=== PATIENT | male | born 1965 | race Asian ===

== ENCOUNTER 2025-02-14 12:58 | Outpatient (AMB) | payer OTHER, SELFPAY ==
--- NOTE | 2025-02-14 12:55 | MHC.OFFVIS ---
Intake Visit Reasons: dysuria and urinary hesitancy Intake Note: New Patient is present for Dysuria,Urinary Hesitancy Urology Rx:Tamsulosin PVR:14 mls Blood Thinners:none Imaging completed: none Vice President Quality Required: No Accompanied by: Self / Same As Patient Allergies No Known Allergies Allergy (Verified 02/14/25 12:56) HPI Comments Details: Tae is a [place] male. He is seen for the following urologic conditions - chronic prostatitis Reports symptoms of urgency, frequency and urinary hesitancy Placed on tamsulosin by prior urology review Treated on 2 separate occasions for UTI through urgent care ABEBA with boggy base of prostate and reproducible symptoms Consistent with chronic prostatitis Trial of prednisone, anti-inflammatory and 2 weeks antibiotics May need Microgen Review of Systems Const Denies chills and Denies fever(s) Card Reports no additional complaints and Denies syncope Resp Denies cough GI Denies abdominal pain and Denies heartburn Reports as per HPI and Denies change in libido Neuro Denies syncope Psych Denies change in libido Endo Denies change in libido Physical Exam Const General: cooperative, healthy appearing, comfortable and no acute distress Orientation/consciousness: patient oriented x3 HEENT Face and sinus: Yes normal facial exam Mouth: moist mucous membranes Neck Neck: Yes normal visual inspection, Yes full ROM and Yes trachea midline Chest Chest palpation & inspection: normal inspection of the chest Resp Effort & Inspection: normal respiratory effort, able to speak in complete sentences and no respiratory distress GI Inspection: Yes normal to inspection Rectal Exam - Male: Yes normal sphincter tone and Yes prostate normal Male General Exam: Yes normal external exam Penis: normal penis and circumcised Meatus: meatus normal Scrotum: scrotum normal Testes: Testes normal Back/Spine/Pelvis Cervical Spine: normal cervical lordosis Thoracic/Lumbar Spine: thoracic and lumbar spine normal to inspection Skin General skin exam: no rashes or lesions noted Neuro General: patient oriented x3, gait normal, tone normal and moves all extremities Extrem General: Yes normal to inspection and Yes capillary refill normal Assessment & Plan Assessment & Plan (1) Pyuria, sterile: Code(s): R82.81 - Pyuria Category: Medical (2) Urinary hesitancy: Code(s): R39.11 - Hesitancy of micturition Category: Medical (3) Dysuria: Code(s): R30.0 - Dysuria Category: Medical (4) Chronic prostatitis/chronic pelvic pain syndrome: Code(s): N41.1 - Chronic prostatitis; G89.4 - Chronic pain syndrome Category: Medical Plan Prostatitis therapy Two month follow-up Orders: Orders US bladder 2 Months G89.4 - Chronic pain syndrome, N41.1 - Chronic prostatitis Medications: New sulfamethoxazole-trimethoprim 800-160 mg (Bactrim DS) 1 tab PO BID 28 tabs 0RF 14 days G89.4 - Chronic pain syndrome, N41.1 - Chronic prostatitis prednisone 20 mg PO DAILY 7 tabs 0RF 7 days G89.4 - Chronic pain syndrome, N41.1 - Chronic prostatitis meloxicam 15 mg PO DAILY 30 tabs 0RF 30 days G89.4 - Chronic pain syndrome, N41.1 - Chronic prostatitis Patient Instructions: This note is constructed using voice recognition software. While every effort has been made to ensure accuracy sample processor errors may have been included. Imaging studies, laboratory and physical exam results were discussed and reviewed in detail. No major barriers to patient understanding were identified. An opportunity to ask questions regarding the treatment plan was provided. All questions were answered. The patient expressed understanding and agreement with the above treatment plan. The patient is aware they should contact our office by phone for worsening of their current condition or the appearance of new urologic symptoms. Compliance is encouraged with any medications and followup testing that is ordered. It is a privilege to participate in the urologic care of your patient. If you have any questions or concerns regarding treatment for the above conditions, or other urologic issues, please do not hesitate to contact me. The office telephone contact is [phone]. Sincerely, Dr Robbie Marc MD, [facility] - Urology Compassionate Specialist Care for the Genitourinary System Coding Level of Care Code New Pt Level 4 (35254) Diagnoses Pyuria, sterile R82.81 Urinary hesitancy R39.11 Dysuria R30.0 Chronic prostatitis/chronic pelvic pain syndrome N41.1; G89.4
--- OUTSIDE RECORDS SUMMARY | 2025-02-14 13:08 | XMS_ITS | Clinical Summary ---
Author Organization [address] [facility] Address [address] [place] [address] Phone Care Team Providers Care Vertical Punch Operator Name Role Phone Azeb Valentine Primary Care Provider [phone] Allergies No known active allergies Medications tamsulosin (FLOMAX) 0.4 mg 24 hr capsule Take 1 capsule (0.4 mg total) by mouth 1 (one) time each day. Capsules should be taken 30 minutes following the same meal each day. Active acetaminophen (TYLENOL 8 HOUR) 650 mg 8 hr tablet Take 1 tablet (650 mg total) by mouth every 8 (eight) hours if needed for mild pain. Do not crush, chew, or split. Active trolamine salicylate (ASPERCREME) 10 % cream Apply topically 3 (three) times a day. Active Encounters Date Type Department Care Team Description 01/23/2025 Telephone Gastroenterology [facility] [address] [address] Nayeli Diop MD special procedure 01/09/2025 Telephone Gastroenterology [address] [address] Nayeli Diop MD information needed from Last 3 Months Social History Tobacco Use Types Packs/Day Years Used Date Smoking Tobacco: Never Assessed Sex and Gender Information Value Date Recorded Sex Assigned at Not on file Legal Sex Male 2:43 AM EST Gender Identity Not on file Sexual Orientation Not on file Plan of Treatment Upcoming Encounters Date Type Department Care Team ([facility] st Contact Info) Description 03/21/2025 7:30 AM EDT Appointment [facility] Endoscopy [address] [place] [address] Nayeli Diop MD [address] [facility] [address] [place] [address] Health Maintenance Due Date Last Done Comments DTaP,Tdap,and Td Vaccines (1 - Tdap) 09/27/1986 Hepatitis B Vaccines (1 of 3 - 19+ 3-dose series) 09/27/1986 Pneumococcal Vaccine: 50+ Ye ars (1 of 1 - PCV) 09/27/2017 Zoster Vaccines (1 of 2) 09/27/2017 Cholesterol Screening (Lipid Panel) 02/14/2024 Colorectal Cancer Screening: Colonoscopy 02/14/2024 HIV Screening 02/14/2024 Hepatitis C Screening 02/14/2024 Social Influencers of Health Screening 02/14/2024 COVID-19 Vaccine (1 - 2023-2 5 season) 2024 Depression Screening 07/18/2024 Influenza Vaccine (#1) 2025 HIB Vaccines Aged Out No longer eligi ble based on patient's age to complete this topic HPV Vaccines Aged Out No longer eligi ble based on patient's age to complete this topic Hepatitis A Vaccines Aged Out No long er eligible based on patient's age to complete this topic IPV Vaccines Aged Out No longer eligi ble based on patient's age to complete this topic MMR Vaccines Aged Out No longer eligi ble based on patient's age to complete this topic Meningococcal ACWY Vaccine Aged Out N o longer eligible based on patient's age to complete this topic Meningococcal B Vaccine Aged Out No l onger eligible based on patient's age to complete this topic RSV Immunization Patients Un anshul 20 months Aged Out No longer eligible b ased on patient's age to complete this topic Varicella Vaccines Aged Out No longer eligible based on patient's age to complete this topic Insurance [facility] Care Teams Vertical Punch Operator Relationship Specialty Start Date End Date Azeb Valentine PA [address] [place] [address] PCP - General 01/09/25
--- OUTSIDE RECORDS SUMMARY | 2025-02-14 13:08 | XMS_ITS | Clinical Summary ---
Author Organization [facility] Address [address] [place] [address] Care Team Providers Care Waste Management Specialist Name Role Phone Jorge A De La Cruz LOANS OFFICER-C Primary Care Provider [phone] Source Comments PLEASE NOTE, if this patient is a minor, it may be UNLAWFUL to discuss sensitive information that is contained in these records (such as FAMILY PLANNING, MENTAL HEALTH or SUBSTANCE ABUSE) with the minor patient's parent or other person without the patient's specific authorization.[facility] Medications ARTHRITIS 10 % cream TAKE 1 APPLICATION (TOPICAL) 3 TIMES PER DAY (MUSCLE PAIN) FOR 14 DAYS 5 Active acetaminophen (TYLENOL 8 HOUR) 650 mg CR tabletIndicati ons:Acute pain of right shoulder Take 1 Tablet by mouth every 8 (eight) hours as needed for pain. 90 Tablet 1 5 Active tamsulosin (FLOMAX) 0.4 mg 24 hr capsuleIndicat ions:Painful urination,Urin benito hesitancy Take 1 Capsule by mouth once daily. 90 Capsule 3 5 Active sulfamethoxazo le-trimethopri m (BACTRIM DS) 800-160 mg per tabletIndicati ons:bacterial urinary tract infection Take 1 Tablet by mouth 2 (two) times daily Indications: bacterial urinary tract infection. 14 Tablet 5 Active tamsulosin (FLOMAX) 0.4 mg 24 hr capsule Take 0.4 mg by mouth once daily. 01/18/20 25 Discontin ued(Reord er (E-Cancel Not Sent)) Active Problems No known active problems Encounters Date Type Department Care Team Description 01/17/2025 5:00 PM EDT Office Visit [facility] [address] [place] [id number] Andi, SITA Cabello 01/08/2025 Results Follow-Up [address] [place] [address] Azeb Valentine PA-C 12/12/2024 1:40 PM EDT Office Visit [facility] [address] [place] [address] Azeb Valentine PA-C from Last 3 Months Immunizations Immunization Administration Dates Next Due ZOSTER VACCINE, RECOMBINANT (SHINGRIX) Family History Medical History Relation Name Comments Diabetes Mother Stroke Mother Relation Name Status Comments Mother Social History Tobacco Use Types Packs/Day Years Used Date Smoking Tobacco: Every Day Cigarettes Smokeless Tobacco: Never Tobacco Cessation:Ready to Q uit: Not Asked; Counseling Given: Not Answered Alcohol Use Standard Drinks/Week Comments Never 0 (1 standard drink = 0.6 oz pur e alcohol) Social Connections Answer Date Recorded How often do you feel lonely or isolated from th ose around you? 1 12/12/2024 Financial Resource Strain Answer Date R ecorded Hard to pay for: Food 1 12/12/2024 Stress Answer Date Recorded Do you feel these kinds of stress these days? 1 12/12/2024 Food Insecurity Answer Date Recorded Hard to pay for: Food 1 12/12/2024 Transportation Needs Answer Date Record ed Hard to pay for: Transportation 1 12/12/2024 Utilities Answer Date Recorded Hard to pay for: Utilities 1 12/12 Sex and Gender Information Value Date Recorded Sex Assigned at Male 12/12/2024 10:46 AM PDT Legal Sex Male 12:05 PM PDT Gender Identity Male 12/12/2024 10:46 AM PDT Sexual Orientation Straight 12/12/2024 10 :46 AM PDT Last Filed Vital Signs Vital Sign Reading Time Taken Comments Blood Pressure 153/82 01/17/2025 4:49 PM EDT Pulse 91 01/17/2025 4:49 PM EDT Temperature 36.7 C (98 F) 01/17/2025 4:49 PM EDT Respiratory Rate 16 01/17/2025 4:49 PM EDT Oxygen Saturation 97% 12/12/2024 1:46 PM EDT Inhaled Oxygen Concentration - - Weight 67.6 kg (149 lb 1.6 oz) 01/17/2025 4:49 P M EDT Height 167.6 cm (5' 6 ) 01/17/2025 4:49 PM EDT Body Mass Index 24.07 01/17/2025 4:49 PM EDT Plan of Treatment Health Maintenance Due Date Last Done Comments Anxiety Screening 1965 Imm-DTaP/Tdap/Td (1 - Tdap) 09/27/1986 Imm-Hepatitis B (1 of 3 - 19 + 3-dose series) 09/27/1986 Imm-Pneumococcal 50+ (1 of 2 - PCV) 09/27/1986 CT Colonography 09/27/2012 Flexible Sigmoidoscopy 09/27/2012 Zym-[id number]-64 (4 - 2023- season) 2024 07/27/2021, 12/19/2020, 11/21/2020 Colonoscopy 01/02/2025 Colorectal Cancer Screening 01/02/2025 Imm-Zoster, Recombinant (2 of 2) 02/06/2025 12/13/19 Imm-Influenza (#1) 2025 Tobacco Cessation Counseling (#1) 12/12/2025 FIT/gFOBT 12/27/2025 12/27/2024, 12/27/2024 Hypertension Screening (#1) 01/17/2026 Diabetes Screening 12/13/2027 12/12/2024 Fecal DNA 12/28/2027 12/27/2024, 12/27/2024 Lipid Screening 12/12/2029 12/12/2024 Alcohol and Drug Screen Completed 12/12/2024 Depression Annual Screen Completed 12/12/2024 HIV Screening Completed 12/12/2024 Hepatitis C Screening Completed 12/12/2024 Procedures Procedure Name Priority Date/Time Associated Diagnosis Comments URINE CULTURE W ID & SENS Routine 01/17/2025 5:06 PM EDT Painful urination Urinary hesitancy RFLX - REFLEXIVE URINE CULTURE Routine 01/17/2025 5:06 PM EDT Painful urination Urinary hesitancy URINALYSIS, COMPLETE W/REFLEX TO CULTURE Routine 01/17/2025 5:06 PM EDT Painful urination URINALYSIS, MULTISTIX (POCT) Routine 01/17/2025 4:55 PM EDT Painful urination LAB COLOGUARD COLON CANCER SCREEN AMB Routine 12/27/2024 5:55 AM EDT Screening for colon cancer C TRACHOMATIS/N GONORRHOEAE RNA,TMA Routine 12/12/2024 3:41 PM EDT Routine screening for STI (sexually transmitted infection) HEPATITIS C AB W/RFLX HCV RNA, QT, RT PCR Routine 12/12/2024 2:28 PM EDT Routine screening for STI (sexually transmitted infection) LIPIDS W RFLX TO DIRECT LDL Routine 12/12/2024 2:28 PM EDT Family history of stroke COMPREHENSIVE METABOLIC PANEL Routine 12/12/2024 2:28 PM EDT Family history of stroke BLOOD COUNT COMPLETE AUTO&AUTO DIFRNTL WBC Routine 12/12/2024 2:28 PM EDT Family history of stroke RPR (DIAGNOSIS) WITH REFLEX TO TITER AND CONFIRMATORY TESTING Routine 12/12/2024 2:28 PM EDT Routine screening for STI (sexually transmitted infection) HIV 1/2 AG & AB W/RFLX (4TH GEN) Routine 12/12/2024 2:28 PM EDT Routine screening for STI (sexually transmitted infection) from Last 3 Months Results * (ABNORMAL) URINE CULTURE W ID & SENS Routine (01/17/2025 5:06 PM EDT) CULTURE See Note(A) [facility] Comment: CULTURE, URINE, ROUTINE Micro Number: [id number] Test Status: Final Specimen Source: Urine Specimen Quality: Adequate Result: Greater than 100,000 CFU/mL of Escherichia coli E.coli INT MEGAN AMOX/CLAVULANATE S <=2 AMP/SULBACTAM S <=2 CEFAZOLIN NR 2 2 CEFEPIME S <=0.12 CEFTAZIDIME S <=0.5 CEFTRIAXONE S <=0.25 CIPROFLOXACIN S <=0.06 GENTAMICIN S <=1 IMIPENEM S <=0.25 LEVOFLOXACIN S <=0.12 MEROPENEM S <=0.25 NITROFURANTOIN S <=16 PIP/TAZOBACTAM S <=4 TRIMETHOPRIM/SULFA S <=20 S = Susceptible I = Intermediate R = Resistant NS = Not susceptible SDD = Susceptible Dose Dependent * = Not Tested NR = Not Reported NN = See Therapy Comments THERAPY COMMENTS Note 1: For infections other than uncomplicated UTI caused by E. coli, K. pneumoniae or P. mirabilis: Cefazolin is resistant if MEGAN > or = 8 mcg/mL. (Distinguishing susceptible versus intermediate for isolates with MEGAN < or = 4 mcg/mL requires additional testing.) Note 2: For uncomplicated UTI caused by E. coli, K. pneumoniae or P. mirabilis: Cefazolin is susceptible if MEGAN <32 mcg/mL and predicts susceptible to the oral agents cefaclor, cefdinir, cefpodoxime, cefprozil, cefuroxime, cephalexin and loracarbef. 01/17/2025 5:06 PM EDT 01/18/2025 7:25 AM EDT us Irineo Escamilla PA-C LAB - MICROBIOLOGY AMBULATORY Final Result [facility] [address] [address], [facility] [address] [address] * (ABNORMAL) URINALYSIS, COMPLETE W/REFLEX TO CULTURE Urine Routine (01/17/2025 5:06 PM EDT) COLOR DARK YELLOW YELLOW [facility] APPEARANCE CLOUDY(A) CLEAR [facility] SPECIFIC GRAVITY 1.025 1.001 - 1.035 [facility] URINE PH 8.0 5.0 - 8.0 [facility] GLUCOSE NEGATIVE NEGATIVE [facility] BILIRUBIN NEGATIVE NEGATIVE [facility] KETONES TRACE(A) NEGATIVE [facility] [place] Prior Knowledge OCCULT BLOOD 2+(A) NEGATIVE [facility] URINE PROTEIN 2+(A) NEGATIVE [facility] NITRITE POSITIVE(A) NEGATIVE [facility] LEUKOCYTE ESTERASE 3+(A) NEGATIVE [facility] URINE LEUKOCYTES > OR = 60(A) < OR = 5 [facility] RBC 20-40(A) 0 - 2 /HPF [facility] SQUAMOUS EPITHELIAL CELLS NONE SEEN < OR = 5 [facility] BACTERIA NONE SEEN NONE SEEN [facility] AMORPHOUS SEDIMENT MANY(A) NONE OR FEW [facility] HYALINE CAST 0-5(A) NONE SEEN /LPF [facility] SEE NOTE See Below [facility] Comment: This urine was analyzed for the presence of WBC, RBC, bacteria, casts, and other formed elements. Only those elements seen were reported. Urine Urine specimen / Unknown 01/17/2025 5:06 PM EDT 01/18/2025 7:25 AM EDT Irineo Escamilla PA-C LAB URINE AMBULATORY Edited R esult - Final Performing Organization Address [facility]/ZIP Co de Phone Number [facility] [address] [address], [facility] [address] [address] * RFLX - REFLEXIVE URINE CULTURE Routine (01/17/2025 5:06 PM EDT) REFLEXIVE URINE CULTURE See Below [facility] Comment:CULTURE INDICATED - RESULTS TO FOLLOW 01/17/2025 5:06 PM EDT 01/18/2025 7:25 AM EDT Irineo Escamilla PA-C LAB - MICROBIOLOGY AMBULATORY Edited Result - Final Performing Organization Address [facility]/ZIP Co de Phone Number [facility] [address] [address], [email or web address] [address] [address] * (ABNORMAL) URINALYSIS, MULTISTIX (POCT) Urine Routine (01/17/2025 4:55 PM EDT) URINE GLUCOSE NEGATIVE NEGATIVE [facility] POCT URINE BILIRUBIN NEGATIVE NEGATIVE [facility] PO[facility] URINE KETONES NEGATIVE NEGATIVE [facility] POCT URINE SPECIFIC GRAVITY 1.020 <=1.005 - >=1.030 [facility]- BACK OFFICE POCT URINE BLOOD LARGE(A) NEGATIVE [facility] POCT URINE PH 8.0 5.0 - 8.5 [facility]- BACK OFF[facility] POCT URINE PROTEIN 100 (2+)(A) Negative KO NG [facility]- BACK OFFICE POCT URINE UROBILINOGEN 1.0 0.2 - 1.0 E.U./dL [facility]- BACK OFFICE POCT URINE NITRITE NEGATIVE NEGATIVE [facility]- BACK OFFICE POCT URINE LEUKOCYTES MODERATE(A) NEGATIVE C [facility]- BACK OFFICE POCT URINE COLOR DARK YELLOW STRAW, YELLOW [facility]- BACK OFFICE POCT ODOR URINE Abnormal(A) Normal [facility]- BACK OFFICE POCT CLARITY OF URINE CLOUDY(A) CLEAR CAR ING [facility]- BACK OFFICE POCT Urine Urine specimen / Unknown 01/17/2025 4:55 PM EDT Irineo Escamilla PA-C LAB URINE AMBULATORY Final Re sult [facility]- BACK OFF[facility] POCT * (ABNORMAL) Cologuard?? colon cancer screening Stool Stool Routine (12/27/2024 5:55 AM EDT) COLOGUARD RESULT Positive( A) Negative 01/01/2025 12:39 PM EDT [facility] (CLIA #:[id number]) Comment: The Cologuard (TM) test was performed on this specimen. POSITIVE TEST RESULT. A positive Cologuard result should be followed with a colonoscopy or visual examination of the colon. The normal value (reference range) for this assay is negative. TEST DESCRIPTION: Composite algorithmic analysis of stool DNA-biomarkers with hemoglobin immunoassay. Quantitative values of individual biomarkers are not reportable and are not associated with individual biomarker result reference ranges. Cologuard is intended for colorectal cancer screening of adults of either sex, 45 years or older, who are at average-risk for colorectal cancer (CRC). Cologuard has been approved for use by the U.S. FDA. The performance of Cologuard was established in a cross sectional study of average-risk adults aged 50-84. Cologuard performance in patients ages 45 to 49 years was estimated by sub-group analysis of near-age groups. Colonoscopies performed for a positive result may find as the most clinically significant lesion: colorectal cancer [4.0%], advanced adenoma (including sessile serrated polyps greater than or equal to 1cm diameter) [20%] or non- advanced adenoma [31%]; or no colorectal neoplasia [45%]. These estimates are derived from a prospective cross-sectional screening study of 10,000 individuals at average risk for colorectal cancer who were screened with both Cologuard and colonoscopy. (Len Chatman et al, N Engl J Med 2014;370(14):4135-8951.) Cologuard may produce a false negative or false positive result (no colorectal cancer or precancerous polyp present at colonoscopy follow up). A negative Cologuard test result does not guarantee the absence of CRC or advanced adenoma (pre-cancer). The current Cologuard screening interval is every 3 years. ([place] [employer] and U.S. Multi-Society Task Force). Cologuard performance data in a 10,000 patient pivotal study using colonoscopy as the reference method can be accessed at the following location: [email or web address]/results. Additional description of the Cologuard test process, warnings and precautions can be found at [email or web address]. Stool specimen (specimen) 12/27/2024 5:55 AM EDT 12/28/2024 11:16 AM EDT Azeb Valentine PA-C LAB BODY FLUIDS AND STOOLS A MBULATORY Final Result [facility] (CLIA #:[id number]) [address] [place] [address], * CHLAMYDIA/NEISSERIA GONORRHOEAE RNA, TMA, UROGENITAL Urine Urine Routine (12/12/2024 3:41 PM EDT) CHLAMYDIA TRACHOMATIS RNA, TMA NOT DETECTED NOT DETECTED [facility] NEISSERIA GONORRHOEAE RNA, TMA NOT DETECTED NOT DETECTED [facility] COMMENT [facility] Urine Urine specimen / Unknown 12/12/2024 3:41 PM EDT 12/12/2024 3:41 PM EDT Narrative [facility] - 12/13/2024 2:32 PM EDT SPLIT 12/12/2024 FROM [id number] The analytical performance characteristics of this assay, when used to test SurePath(TM) specimens have been determined by [employer]. The modifications have not been cleared or approved by the FDA. This assay has been validated pursuant to the CLIA regulations and is used for clinical purposes. For additional information, please refer to https://education.Mindwork [employer]/faq/MRT921 (This link is being provided for information/ educational purposes only.) us Azeb Valentine PA-C LAB BODY FLUIDS AND STOOLS A MBULATORY Final Result Performing Organization Address [facility] Co de Phone Number [facility] [address] [address], [email or web address] [address] [address] * RPR (DIAGNOSIS) WITH REFLEX TO TITER AND CONFIRMATORY TESTING Routine (12/12/2024 2:28 PM EDT) RPR (DX) W/REFL TITER AND CONFIRMATORY TESTING NON-REACT DARELL NON-REACT DARELL [facility] Comment: No laboratory evidence of syphilis. If recent exposure is suspected, submit a new sample in 2-4 weeks. Serum Blood / Unknown 12/12/2024 2 :28 PM EDT 12/12/2024 2:29 PM EDT Narrative [facility] - 12/14/2024 10:54 AM EDT SPECIMEN COLLECTED AT PROVIDER OFFICE. [employer] Azeb Valentine PA-C LAB - BLOOD DRAW Final Resul t Performing Organization Address [facility]/ZIP Co de Phone Number [facility] [address] [place] [address], [email or web address] [address] [address] * HEPATITIS C AB W/RFLX HCV RNA, QT, RT PCR Routine (12/12/2024 2:28 PM EDT) HEPATITIS C ANTIBODY NON-REACT DARELL NON-REACT DARELL [facility] Comment: HCV antibody was non-reactive. There is no laboratory evidence of HCV infection. In most cases, no further action is required. However, if recent HCV exposure is suspected, a test for HCV RNA (test code 07963) is suggested. For additional information please refer to http://AppTank.[facility]work [facility]/faq/ZEN25w3 (This link is being provided for informational/ educational purposes only.) Blood Blood / Unknown 12/12/2024 2 :28 PM EDT 12/12/2024 2:29 PM EDT Narrative [facility] - 12/14/2024 10:54 AM EDT SPECIMEN COLLECTED AT PROVIDER OFFICE. us Azeb Valentine PA-C LAB - BLOOD DRAW Edited Resu lt - Final [facility] [address] [place] [address], [facility] [address] [place] [phone] * HIV 1/2 AG & AB W/RFLX (4TH GEN) Routine (12/12/2024 2:28 PM EDT) HIV AG/AB, 4TH GEN NON-REAC TIVE NON-REAC TIVE [facility] Comment: HIV-1 antigen and HIV-1/HIV-2 antibodies were not detected. There is no laboratory evidence of HIV infection. PLEASE NOTE: This information has been disclosed to you from records whose confidentiality may be protected by state law. If your state requires such protection, then the state law prohibits you from making any further disclosure of the information without the specific written consent of the person to whom it pertains, or as otherwise permitted by law. A general authorization for the release of medical or other information is NOT sufficient for this purpose. For additional information please refer to http://AppTank.[facility]/faq/NLE647 (This link is being provided for informational/ educational purposes only.) The performance of this assay has not been clinically validated in patients less than 2 years old. Blood Blood / Unknown 12/12/2024 2 :28 PM EDT 12/12/2024 2:29 PM EDT Narrative [facility] - 12/14/2024 10:54 AM EDT SPECIMEN COLLECTED AT PROVIDER OFFICE. us Azeb Valentine PA-C LAB - BLOOD DRAW Final Resul t [facility] [address] [place] [address], [facility] [address] [address] * (ABNORMAL) LIPIDS W RFLX TO DIRECT LDL Routine (12/12/2024 2:28 PM EDT) CHOLESTEROL, TOTAL 181 <200 mg/dL [facility] HDL CHOLESTEROL 49 > OR = 40 mg/dL [facility] TRIGLYCERIDES 118 <150 mg/dL [facility] LDL-CHOLESTEROL 109(H) 99 mg/dL (calc) [facility] Comment: Reference range: <100 Desirable range <100 mg/dL for primary prevention; <70 mg/dL for patients with CHD or diabetic patients with > or = 2 CHD risk factors. LDL-C is now calculated using the Rj-Rowe calculation, which is a validated novel method providing better accuracy than the Friedewald equation in the estimation of LDL-C. Rj QUIROZ et al. OCTAVIO. 2013;310(19): 8729-8417 (http://education.Mygeni/faq/RLA971) CHOL/HDLC RATIO 3.7 <5.0 (calc) [facility] NON-HDL CHOLESTEROL 132(H) <130 mg/dL (calc) [facility] Comment: For patients with diabetes plus 1 major ASCVD risk factor, treating to a non-HDL-C goal of <100 mg/dL (LDL-C of <70 mg/dL) is considered a therapeutic option. Blood Blood / Unknown 12/12/2024 2 :28 PM EDT 12/12/2024 2:29 PM EDT Narrative [facility] - 12/14/2024 10:54 AM EDT SPECIMEN COLLECTED AT PROVIDER OFFICE. us Azeb Valentine PA-C LAB - BLOOD DRAW Final Resul t [facility] [address] [address], [facility] [address] [place] [address] * (ABNORMAL) BLOOD COUNT COMPLETE AUTO&AUTO DIFRNTL WBC Routine (12/12/2024 2:28 PM EDT) WHITE BLOOD CELL COUNT 13.8(H) 3.8 - 10.8 Thousand/ uL [facility] RED BLOOD CELL COUNT 4.71 4.20 - 5.80 Million/u L [facility] HEMOGLOBIN 15.4 13.2 - 17.1 g/dL [facility] HEMATOCRIT 45.1 38.5 - 50.0 % [facility] MCV 95.8 80.0 - 100.0 fL [facility] MCH 32.7 27.0 - 33.0 pg [facility] MCHC 34.1 32.0 - 36.0 g/dL [facility] Comment: For adults, a slight decrease in the calculated MCHC value (in the range of 30 to 32 g/dL) is most likely not clinically significant; however, it should be interpreted with caution in correlation with other red cell parameters and the patient's clinical condition. RDW 14.5 11.0 - 15.0 % [facility] PLATELET COUNT 162 140 - 400 Thousand/ uL [facility] MPV 11.3 7.5 - 12.5 fL [facility] ABSOLUTE NEUTROPHILS 8,611(H) 1,500 - 7,800 cells/uL [facility] ABSOLUTE LYMPHOCYTES 3,809 850 - 3,900 cells/uL [facility] ABSOLUTE MONOCYTES 745 200 - 950 cells/uL [facility] ABSOLUTE EOSINOPHILS 538(H) 15 - 500 cells/uL [facility] ABSOLUTE BASOPHILS 97 0 - 200 cells/uL [facility] NEUTROPHILS PCT 62.4 % QUES [facility] LYMPHOCYTES 27.6 % [facility] MONOCYTES 5.4 % [facility] EOSINOPHILS 3.9 % [facility] BASOPHILS 0.7 % [facility] Blood Blood / Unknown 12/12/2024 2 :28 PM EDT 12/12/2024 2:29 PM EDT Narrative [facility] - 12/14/2024 10:54 AM EDT SPECIMEN COLLECTED AT PROVIDER OFFICE. Azeb Valentine PA-C LAB - BLOOD DRAW Edited Resu lt - Final [facility] [address] [address], [facility] [address] [place] [address] * (ABNORMAL) COMPREHENSIVE METABOLIC PANEL Routine (12/12/2024 2:28 PM EDT) GLUCOSE 102(H) 65 - 99 mg/dL [facility] Comment: Fasting reference interval For someone without known diabetes, a glucose value between 100 and 125 mg/dL is consistent with prediabetes and should be confirmed with a follow-up test. UREA NITROGEN (BUN) 12 7 - 25 mg/dL [facility] CREATININE (blood) 0.84 0.70 - 1.30 mg/dL [facility] EGFR 102 > OR = 60 mL/min/1. 73m2 [facility] BUN/CREATININE RATIO SEE NOTE: [facility] Comment: Not Reported: BUN and Creatinine are within reference range. SODIUM 139 135 - 146 mmol/L [facility] POTASSIUM 4.9 3.5 - 5.3 mmol/L [facility] CHLORIDE 106 98 - 110 mmol/L [facility] CARBON DIOXIDE 28 20 - 32 mmol/L [facility] CALCIUM 9.6 8.6 - 10.3 mg/dL [facility] PROTEIN, TOTAL 7.2 6.1 - 8.1 g/dL [facility] ALBUMIN 4.6 3.6 - 5.1 g/dL [facility] GLOBULIN 2.6 1.9 - 3.7 g/dL (calc) [facility] ALBUMIN/GLOBULI N RATIO 1.8 1.0 - 2.5 (calc) [facility] BILIRUBIN, TOTAL 1.7(H) 0.2 - 1.2 mg/dL [facility] ALKALINE PHOSPHATASE 64 35 - 144 U/L [facility] AST 21 10 - 35 U/L [facility] ALT 19 9 - 46 U/L [facility] Blood Blood / Unknown 12/12/2024 2 :28 PM EDT 12/12/2024 2:29 PM EDT Narrative [facility] - 12/14/2024 10:54 AM EDT SPECIMEN COLLECTED AT PROVIDER OFFICE. Azeb Valentine PA-C LAB - BLOOD DRAW Edited Resu lt - Final [facility] [address] [address], [facility] [address] [place] [address] from Last 3 Months Insurance [employer] Member Subscriber Plan / Payer (Ef fective 2024-Present) Name:Tae Fajardo Relation to Subscriber:Self Name:Tae Fajardo Payer ID:[id number] Group ID:Not on file Type:Indemnity Address: [facility] [address] [place] [address] Care Teams Waste Management Specialist Relationship Specialty Start Date End Date Jorge A De La Cruz FNP-C [address] [place] [address] PCP - General Internal Medicine 09/20/24
== END 2025-02-14 13:26 | disposition home or self-care (01) ==
LOC: HO.HUSH 12:58
PROVIDERS: Visit Provider Urology
DX: R82.81 Pyuria (principal); R39.11 Hesitancy of micturition; R30.0 Dysuria; N41.1 Chronic prostatitis; G89.4 Chronic pain syndrome; Z13.9 Encounter for screening, unspecified
CPT/HCPCS: 99204

== ENCOUNTER → 2025-02-14 12:58 | Outpatient (BNVA) | payer OTHER, SELFPAY | PROVIDERS: Visit Provider Urology | DX: N41.1 Chronic prostatitis (principal); G89.4 Chronic pain syndrome; R39.11 Hesitancy of micturition; R30.0 Dysuria; R82.81 Pyuria | CPT/HCPCS: 81003; 99202 ==

== ENCOUNTER 2025-05-03 13:47 | Outpatient (REF) | payer OTHER, SELFPAY ==
--- NOTE | ~2025-05-03 | US_ITS ---
EXAMINATION: US BLADDER HISTORY: N41.1 - Chronic prostatitis COMPARISON: There are no prior studies available for comparison. FINDINGS: Sonographic examination of the urinary bladder was performed before and after voiding. Before voiding, the urinary bladder measured 6.7 x 4.8 x 7.5, for an estimated volume of 125 mL. After voiding, the urinary bladder measured 2.7 x 2.3 x 2.3, for an estimated volume of 7.4 mL. No intrinsic bladder abnormality is identified. Bilateral ureteral jets are identified. The prostate measures 3.0 x 2.2 x 3.6 cm, for an estimated volume of 12.4 mL. US/US bladder IMPRESSION: 1. Unremarkable ultrasound of the urinary bladder. 2. Post void bladder residual is 7.4 mL. 3. Prostate volume of 12.4 mL. Electronically signed by: Ethan Hurtado MD 05/03/2025 02:36 PM EDT
--- OUTSIDE RECORDS SUMMARY | 2025-05-03 16:14 | XMS_ITS | Clinical Summary ---
Author Organization [facility] Address [address] [place] [address] Phone Care Team Providers Care Ict Systems Test Engineer Name Role Phone Azeb Valentine Primary Care Provider [phone] Allergies No known active allergies Medications tamsulosin [...] topically 3 (three) times a day. Active bisacodyL (DULCOLAX) 5 mg EC tablet Take 2 tablets by mouth right before beginning bowel prep. See instructions provided by the office 2 tablet 5 Active polyethylene glycol (Golytely) 236-22.74-6.74 -5.86 gram solution Take 4L by mouth once for one dose. May substitue any PEG. Starting at 2PM the day before your procedure drink 1 8oz glasses at your own pace until you complete half of the gallon. Finish 2nd half of the gallon at 8PM. 4000 mL 5 Active Encounters Date Type Department Care Team Description 04/21/2025 Results Follow-Up Gastroenterology - [place] [facility] 175 [facility] [address] [place] [address] Nayeli Diop MD 03/21/2025 7:43 AM EDT Anesthesia Event [facility] Endoscopy [address] [place] [address] Emerson Hutchins MD 03/21/2025 6:49 AM EDT - 03/21/2025 11:59 PM EDT Hospital Encounter [facility] Endoscopy [address] [place] [address] Nayeli Diop MD Steele, Matthew G, CRNA Colon cancer screening Discharge Disposition: Home or Self Care from Last 3 Months Social History Tobacco Use Types Packs/Day Years Used Date Smoking Tobacco: Never Smokeless Tobacco: Never Tobacco Cessation:Counseling Given: Not Answered Alcohol Use Standard Drinks/Week Comments Never 0 (1 standard drink = 0.6 oz pur e alcohol) Interpersonal Safety Answer Date Record ed Physical Abuse Unrecognized value 03/21/2025 Verbal Abuse Unrecognized value 03/21/2025 Sex and Gender Information Value Date Recorded Sex Assigned at Not on file Legal Sex Male 2:43 AM EST Gender Identity Not on file Sexual Orientation Not on file Obstetrics History Last Filed Vital Signs Vital Sign Reading Time Taken Comments Blood Pressure 112/74 03/21/2025 8:36 AM EDT Pulse 74 03/21/2025 8:36 AM EDT Temperature 36.9 C (98.4 F) 03/21/2025 8:21 AM EDT Respiratory Rate 18 03/21/2025 8:36 AM EDT Oxygen Saturation 99% 03/21/2025 8:36 AM EDT Inhaled Oxygen Concentration - - Weight 65.8 kg (145 lb) 03/21/2025 7:06 AM EDT Height 170.2 cm (5' 7 ) 03/21/2025 7:06 AM EDT Body Mass Index 22.71 03/21/2025 7:06 AM EDT Plan of Treatment Health Maintenance Due Date Last Done Comments DTaP,Tdap,and Td Vaccines (1 - Tdap) 09/27/1986 Hepatitis B Vaccines (1 of 3 - 19+ 3-dose series) 09/27/1986 Pneumococcal Vaccine: 50+ Years (1 of 1 - PCV) 09/27/2017 HIV Screening 02/14/2024 Social Influencers of Health Screening 02/14/2024 Depression Screening 07/18/2024 Zoster Vaccines (2 of 2) 02/06/2025 12/12/2024 COVID-19 Vaccine (4 - 2024-2 6 season) 2025 07/27/2021, 12/19/2020, 11/21/2020 Influenza Vaccine (#1) 2025 Colorectal Cancer Screening: Colonoscopy 03/21/2028 03/21/2025 Cholesterol Screening (Lipid Panel) 12/12/2029 12/12/2024 RSV Immunization Adult Patients (1 - 1-dose 75+ series) 09/27/2042 Hepatitis C Screening Completed 12/12/2024 HIB Vaccines Aged Out No longer eligi [...] to complete this topic RSV Immunization Patients Under 20 months Aged Out No longer eligible b ased on patient's age to complete this topic Varicella Vaccines Aged Out No longer eligible based on patient's age to complete this topic Procedures Procedure Name Priority Date/Time Associated Diagnosis Comments COLONOSCOPY Routine 03/21/2025 8:15 AM EDT Colon cancer screening TISSUE EXAM Routine 03/21/2025 7:56 AM EDT Colon cancer screening from Last 3 Months Results * COLONOSCOPY Anesthesia - MAC; SP ENDOSCOPY (03/21/2025 8:15 AM EDT) Anatomical Region Laterality Modality Endoscopy 03/21/2025 7:49 AM EDT Impressions 03/21/2025 8:16 AM EDT - Six 2 to 9 mm polyps in the rectum, in the descending colon and in the transverse colon, removed with a cold snare. Resected and retrieved. - The examination was otherwise normal on direct and retroflexion views. Recommendation: - Discharge patient to home. - Await pathology results. - Repeat colonoscopy in 3 years for surveillance. Narrative 03/21/2025 8:16 AM EDT [facility] GI Patient Name: Tae Fajardo Procedure Date: 03/21/2025 7:49 AM Date of : 1965 Age: 59 Gender: Male Note Status: Finalized Attending MD: Nayeli Diop MD, Procedure Date No Time: 03/21/2025 Procedure: Colonoscopy Indications: Screening for colorectal malignant neoplasm Providers: Nayeli Diop MD Referring MD: Nayeli Diop MD Medicines: Monitored Anesthesia Care Complications: No immediate complications. Estimated blood loss: Minimal. Estimated Blood Loss: Estimated blood loss was minimal. Procedure: Pre-Anesthesia Assessment: - Prior to the procedure, a History and Physical was performed, and patient medications and allergies were reviewed. The patient is competent. The risks and benefits of the procedure and the sedation options and risks were discussed with the patient. All questions were answered and informed consent was obtained. Patient identification and proposed procedure were verified by the physician, the nurse, the financial reporting accountant and the animal care technician in the pre-procedure area in the endoscopy suite. Mental Status Examination: alert and oriented. Airway Examination: normal oropharyngeal airway and neck mobility. Respiratory Examination: clear to auscultation. CV Examination: normal. Prophylactic Antibiotics: The patient does not require prophylactic antibiotics. Prior Anticoagulants: The patient has taken no anticoagulant or antiplatelet agents. ASA Grade Assessment: II - A patient with mild systemic disease. After reviewing the risks and benefits, the patient was deemed in satisfactory condition to undergo the procedure. The anesthesia plan was to use monitored anesthesia care (MAC). Immediately prior to administration of medications, the patient was re-assessed for adequacy to receive sedatives. The heart rate, respiratory rate, oxygen saturations, blood pressure, adequacy of pulmonary ventilation, and response to care were monitored throughout the procedure. The physical status of the patient was re-assessed after the procedure. After I obtained informed consent, the scope was passed under direct vision. Throughout the procedure, the patient's blood pressure, pulse, and oxygen saturations were monitored continuously. The Colonoscope was introduced through the anus and advanced to the cecum, identified by appendiceal orifice and ileocecal valve. The colonoscopy was performed without difficulty. The patient tolerated the procedure well. The quality of the bowel preparation was good. Findings: The perianal and digital rectal examinations were normal. Six sessile polyps were found in the rectum, descending colon and transverse colon. The polyps were 2 to 9 mm in size. These polyps were removed with a cold snare. Resection and retrieval were complete. Estimated blood loss was minimal. The exam was otherwise without abnormality on direct and retroflexion views. Procedure Code(s): --- Professional --- 88945, Colonoscopy, flexible; with removal of tumor(s), polyp(s), or other lesion(s) by snare technique Diagnosis Code(s): --- Professional --- D12.8, Benign neoplasm of rectum D12.4, Benign neoplasm of descending colon D12.3, Benign neoplasm of transverse colon (hepatic flexure or splenic flexure) CPT copyright 2020 [employer]. All rights reserved. The codes documented in this report are preliminary and upon weather reporter review may be revised to meet current compliance requirements. Nayeli Diop MD 03/21/2025 8:15:58 AM This report has been signed electronically.Nayeli Diop MD Number of Addenda: 0 Note Initiated On: 03/21/2025 7:49 AM Scope Withdrawal Time: 0 hours 12 minutes 46 seconds Scope In: 7:53:57 AM Scope Out: 8:13:39 AM Endoscopy Department at [facility] - [address] [place] [id number] Procedure Note Nayeli Diop MD - 03/21/2025 [facility] GI Patient Name: Tae Fajardo Procedure Date: 03/21/2025 7:49 AM Date of : 1965 Age: 59 Gender: Male Note Status: Finalized Attending MD: Nayeli Diop MD, Procedure Date No Time: 03/21/2025 Procedure: Colonoscopy Indications: Screening for colorectal malignant neoplasm Providers: Nayeli Diop MD Referring MD: Nayeli Diop MD Medicines: Monitored Anesthesia Care Complications: No immediate complications. Estimated blood loss: Minimal. Estimated Blood Loss: Estimated blood loss was minimal. Procedure: Pre-Anesthesia Assessment: - Prior to the procedure, a History and Physicalwas performed, and patient medications and allergieswere reviewed. The patient is competent. The risks and benefits of the procedure and the sedation optionsand risks were discussed with the patient. Allquestions were answered and informed consent was obtained. Patient identification and proposed procedure were verified by the physician, the nurse, theanesthetist and the animal care technician in the pre-procedure area in the endoscopy suite. Mental Status Examination: alertand oriented. Airway Examination: normal oropharyngeal airway and neck mobility. Respiratory Examination: clear to auscultation. CV Examination: normal. Prophylactic Antibiotics: The patient does notrequire prophylactic antibiotics. Prior Anticoagulants: The patient has taken no anticoagulant or antiplatelet agents. ASA Grade Assessment: II - A patient withmild systemic disease. After reviewing the risks and benefits, the patient was deemed in satisfactory condition to undergo the procedure. The anesthesia plan was to use monitored anesthesia care (MAC). Immediately prior to administration of medications, the patient was re-assessed for adequacy to receive sedatives. The heart rate, respiratory rate, oxygen saturations, blood pressure, adequacy of pulmonary ventilation, and response to care were monitored throughout the procedure. The physical status ofthe patient was re-assessed after the procedure. After I obtained informed consent, the scope was passed under direct vision. Throughout theprocedure, the patient's blood pressure, pulse, and oxygen saturations were monitored continuously. The Colonoscope was introduced through the anus and advanced to the cecum, identified by appendiceal orifice and ileocecal valve. The colonoscopy was performed without difficulty. The patient tolerated the procedure well. The quality of the bowel preparation was good. Findings: The perianal and digital rectal examinations were normal. Six sessile polyps were found in the rectum, descending colon and transverse colon. The polypswere 2 to 9 mm in size. These polyps were removed with a cold snare. Resection and retrieval were complete. Estimated blood loss was minimal. The exam was otherwise without abnormality ondirect and retroflexion views. Procedure Code(s): --- Professional --- 60601, Colonoscopy, flexible; with removal of tumor(s), polyp(s), or other lesion(s) by snare technique Diagnosis Code(s): --- Professional --- D12.8, Benign neoplasm of rectum D12.4, Benign neoplasm of descending colon D12.3, Benign neoplasm of transverse colon (hepatic flexure or splenic flexure) CPT copyright 2020 [employer]. All rights reserved. The codes documented in this report are preliminary and upon weather reporter reviewmay be revised to meet current compliance requirements. Nayeli Diop MD 03/21/2025 8:15:58 AM This report has been signed electronically.Nayeli Diop MD Number of Addenda: 0 Note Initiated On: 03/21/2025 7:49 AM Scope Withdrawal Time: 0 hours 12 minutes 46 seconds Scope In: 7:53:57 AM Scope Out: 8:13:39 AM Endoscopy Department at [facility] - [address] [place] [id number] IMPRESSION: - Six 2 to 9 mm polyps in the rectum, in the descending colon and in the transverse colon,removed with a cold snare. Resected and retrieved. - The examination was otherwise normal on directand retroflexion views. Recommendation: - Discharge patient to home. - Await pathology results. - Repeat colonoscopy in 3 years for surveillance. us Nayeli Diop MD GI~PROCEDURE ORDERABLES Fin al Result * Tissue exam (03/21/2025 7:56 AM EDT) Final Diagnosis A. Large Intestine, Left/Descendin g Colon, polyp x1: - Tubular adenoma. B. Large Intestine, Transverse Colon, polyps x4: - Tubular adenoma(s). C. Large Intestine, Rectum, polyp x1: - Traditional serrated adenoma. 03/22/2025 10:14 AM EDT [facility] Gross Description A. Large Intestine, Left/Descendin g Colon, polyp x 1: Labeled descending colon polyp x 1 . Received in formalin is a 0.5 cm saavedra disrupted mucosal polyp. The resection margin is inked black. The specimen is bisected, wrapped in paper, and entirely submitted one cassette, two pieces, multiple levels on one slide. B. Large Intestine, Transverse Colon, polyp x 4: Labeled trans colon polyp x 4. . Received in formalin are multiple irregular saavedra mucosal tissue fragments, ranging from less than 0.1 cm to 0.5 cm in greatest dimension, which are wrapped in paper and submitted in toto in two cassettes, six pieces in multiple pieces, respectively, multiple levels on each slide. C. Large Intestine, Rectum, polyp x 1: Labeled LI rectum polyp x 1 . Received in formalin is a 0.6 cm pink-red mucosal polyp. The margin is inked black. The polyp is bisected, wrapped in paper, and entirely submitted in one cassette, two pieces, multiple levels on one slide. MANOLO 03/22/2025 10:14 AM EDT [facility] Disclaimer Unless otherwise specified, all tissue is 10% NB formalin fixed and paraffin embedded. 03/22/2025 10:14 AM EDT [facility] Tissue Descending colon structure / Unknown 03/21/2025 7:56 AM EDT 03/21/2025 10:26 AM EDT Tissue specimen (specimen) Transverse colon structure / Unknown 03/21/2025 8:03 AM EDT 03/21/2025 10:26 AM EDT Tissue specimen (specimen) Rectum structure / Unknown 03/21/2025 8:11 AM EDT 03/21/2025 10:26 AM EDT Nayeli Diop MD LAB PATHOLOGY ORDERABLES Fi nal Result [facility] [address] [place] [address], from Last 3 Months Insurance [facility] Care Teams Ict Systems Test Engineer Relationship Specialty Start Date End Date Azeb Valentine PA [address] [place] [address] PCP - General 01/09/25
--- OUTSIDE RECORDS SUMMARY | 2025-05-03 16:14 | XMS_ITS | Encounter Summary ---
Author Organization [facility] Address [address] [place] [address] Care Team Providers Care Bowling Alley Refinisher Name Role Phone Azeb Valentine Primary Care Provider [phone] Encounter Details Date Type Department Care Team ([facility] st Contact Info) Description 04/21/2025 Results Follow-Up Gastroenterology - [place] [address] [place] [phone] Nayeli Diop MD [address] [facility] [address] [place] [address] Social History Tobacco Use Types Packs/Day Years Used Date Smoking Tobacco: Never Smokeless Tobacco: Never Alcohol Use Standard Drinks/Week Comments Never 0 (1 standard drink = 0.6 oz pur e alcohol) Interpersonal Safety Answer Date Record ed Physical Abuse Unrecognized value 03/21/2025 Verbal Abuse Unrecognized value 03/21/2025 Sex and Gender Information Value Date Recorded Sex Assigned at Not on file Legal Sex Male 2:43 AM EST Gender Identity Not on file Sexual Orientation Not on file documented as of this encounter Progress Notes * Nayeli Diop MD - 04/21/2025 4:40 PM EDT The polyp(s) that were removed during your colonoscopy were precancerous, but benign. Fortunately, we removed them and therefore, they will not cause any more problems in the future. Based on the number, the size, and the features of the polyp(s) removed, I recommend a follow-up colonoscopy in 3 years. Before, the three years are due, we will send you a reminder in the mail asking you to contact our office to have the colonoscopy scheduled. I would like to personally thank you for allowing us to take care of you. Please don't hesitate to call us for any questions or concerns. Regards, Woody Diop MD Board Certified Gastroenterology and Internal Medicine Transplant Hepatology [facility] documented in this encounter Plan of Treatment Not on file documented as of this encounter Visit Diagnoses Not on filedocumented in this encounter Care Teams Bowling Alley Refinisher Relationship Specialty Start Date End Date Azeb Valentine PA [address] [place] [address] PCP - General 01/09/25 documented as of this encounter
== END 2025-05-03 13:48 | disposition home or self-care (01) ==
LOC: HO.HMGCX 13:47
PROVIDERS: Visit Provider Urology
DX: N41.1 Chronic prostatitis (principal); G89.4 Chronic pain syndrome
CPT/HCPCS: 76857

== ENCOUNTER → 2025-05-03 13:52 | Outpatient (BNV) | payer OTHER, SELFPAY | PROVIDERS: Visit Provider Radiology Diagnostic Radiology | DX: N41.1 Chronic prostatitis (principal) | CPT/HCPCS: 76857 ==

== ENCOUNTER 2025-05-09 09:47 | Outpatient (AMB) | payer OTHER, SELFPAY ==
--- NOTE | 2025-05-09 09:48 | MHC.OFFVIS ---
Intake Visit Reasons: 2m/US Intake Note: Patient is present for 2 mo follow up Dysuria,Urinary Hesitancy Urology Rx:Tamsulosin,Meloxicam PVR: 53 mls Blood Thinners:none Imaging completed: 05/03/25 Ultrasound Instructional Support Services Director Required: No Accompanied by: Self / Same As Patient Allergies No Known Allergies Allergy (Verified 02/14/25 12:56) HPI Comments Details: Tae is a [place] male. He is seen for the following urologic conditions - chronic prostatitis - post UTI syndrome Urgency and frequency during the day Nocturia x1 Postinfectious syndrome Oxybutynin for six-month Prostatitis Initial ABEBA with boggy base of prostate and reproducible symptoms Consistent with chronic prostatitis Responded to combination treatment Review of Systems Const Denies chills and Denies fever(s) Card Reports no additional complaints and Denies syncope Resp Denies cough GI Denies abdominal pain and Denies heartburn Reports as per HPI and Denies change in libido Neuro Denies syncope Psych Denies change in libido Endo Denies change in libido Physical Exam Const General: cooperative, healthy appearing, comfortable and no acute distress Orientation/consciousness: patient oriented x3 HEENT Face and sinus: Yes normal facial exam Mouth: moist mucous membranes Neck Neck: Yes normal visual inspection, Yes full ROM and Yes trachea midline Chest Chest palpation & inspection: normal inspection of the chest Resp Effort & Inspection: normal respiratory effort, able to speak in complete sentences and no respiratory distress GI Inspection: Yes normal to inspection Back/Spine/Pelvis Cervical Spine: normal cervical lordosis Thoracic/Lumbar Spine: thoracic and lumbar spine normal to inspection Skin General skin exam: no rashes or lesions noted Neuro General: patient oriented x3, gait normal, tone normal and moves all extremities Extrem General: Yes normal to inspection and Yes capillary refill normal Office Procedures Post Void Residual Post Residual Void Post Void Residual (PVR): 53 [id number] Void Residual by ultrasound Results AMB Urinalysis, Automated UA Leukoctes 0 Shira/uL Last Edit by FREDDY Rosas on 05/09/25 10:03 UA Nitrite Negative Last Edit by FREDDY Rosas on 05/09/25 10:03 UA Urobilinogen 0.2 mg/dL Last Edit by FREDDY Rosas on 05/09/25 10:03 UA Protein 0 mg/dL Last Edit by Estrella Clifford CCMA on 05/09/25 10:03 UA pH 5.5 Last Edit by Estrella Colon, CCMA on 05/09/25 10:03 UA Blood 0 Jossue/uL Last Edit by Estrella Colon, CCMA on 05/09/25 10:03 UA Specific [place] 1.025 Last Edit by Estrella Colon, CCMA on 05/09/25 10:03 UA Ketone Negative Last Edit by Estrella Colon, CCMA on 05/09/25 10:03 UA Bilirubin 0 mg/dL Last Edit by Estrella Colon, CCMA on 05/09/25 10:03 UA Glucose 0 mg/dL Last Edit [facility] on 05/09/25 10:03 Results Reviewed Results Reviewed: Laboratory Last Values Urine pH (Auto) 5.5 05/09/25 10:01 Specific [place] (Auto) 1.025 05/09/25 10:01 Urine Protein (Auto) 0 mg/dL 05/09/25 10:01 Glucose (UA)(Auto) 0 mg/dL 05/09/25 10:01 Urine Ketones (Auto) Negative 05/09/25 10:01 Urine Blood (Auto) 0 Jossue/uL 05/09/25 10:01 Urine Nitrite (Auto) Negative 05/09/25 10:01 Urine Bilirubin (Auto) 0 mg/dL 05/09/25 10:01 Urine Urobilinogen (Auto) 0.2 mg/dL 05/09/25 10:01 Leukocyte Esterase (Auto) 0 Shira/uL 05/09/25 10:01 Assessment & Plan Assessment & Plan (1) Urinary hesitancy: Code(s): R39.11 - Hesitancy of micturition Category: Medical Plan Start oxybutynin Six-month follow-up Medications: New oxybutynin chloride ER 5 mg PO DAILY 90 tabs 1RF 90 days R39.11 - Hesitancy of micturition Patient Instructions: This note is constructed using voice recognition software. While every effort has been made to ensure accuracy flight teacher errors may have been included. Imaging studies, laboratory and physical exam results were discussed and reviewed in detail. No major barriers to patient understanding were identified. An opportunity to ask questions regarding the treatment plan was provided. All questions were answered. The patient expressed understanding and agreement with the above treatment plan. The patient is aware they should contact our office by phone for worsening of their current condition or the appearance of new urologic symptoms. Compliance is encouraged with any medications and followup testing that is ordered. It is a privilege to participate in the urologic care of your patient. If you have any questions or concerns regarding treatment for the above conditions, or other urologic issues, please do not hesitate to contact me. The office telephone contact is [phone]. Sincerely, Dr Robbie Marc MD, AV [facility] - Urology Compassionate Specialist Care for the Genitourinary System Coding Level of Care Code Est Pt Level 4 (07920) Diagnoses Urinary hesitancy R39.11 CPT Codes Post Residual Void - PVR CPT Code: 42064-Vauz Void Residual by ultrasound ([id number])
--- OUTSIDE RECORDS SUMMARY | 2025-05-09 11:10 | XMS_ITS | Encounter Summary ---
Author Organization [facility] Address [address] [place] [address] Care Team Providers Care Refractory Repairer Name Role Phone Azeb Valentine Primary Care Provider [phone] Encounter Details Date Type Department Care Team ([facility] st Contact Info) Description 04/21/2025 Results Follow-Up Gastroenterology - [place] [address] [place] [phone] Nayeli Diop MD 175 [facility] [address] [place] [address] Social History Tobacco Use Types Packs/Day Years [...] Certified Gastroenterology and Internal Medicine Transplant Hepatology [facility] documented in this encounter Plan of Treatment Not on file documented as of this encounter Visit Diagnoses Not on filedocumented in this encounter Care Teams Refractory Repairer Relationship Specialty Start Date End Date Azeb Valentine PA [address] [place] [address] PCP - General 01/09/25 documented as of this encounter
--- OUTSIDE RECORDS SUMMARY | 2025-05-09 11:10 | XMS_ITS | Clinical Summary ---
Author Organization 175 [facility] Address [address] [place] [address] Phone Care Team Providers Care Ems Helicopter Pilot Name Role Phone Azeb Valentine Primary Care Provider [phone] Allergies No known active allergies Medications tamsulosin [...] Team Description 04/21/2025 Results Follow-Up Gastroenterology - [place] 175 [facility] 175 [facility] [address] [place] [address] Nayeli Diop MD 03/21/2025 7:43 AM EDT Anesthesia Event [facility] Endoscopy [address] [place] [address] Emerson Hutchins MD 03/21/2025 6:49 AM EDT - 03/21/2025 11:59 PM EDT Hospital Encounter [facility] Endoscopy [address] [place] [address] Nayeli Diop MD Steele, Matthew [...] for surveillance. Narrative 03/21/2025 8:16 AM EDT [facility] GI Patient Name: Tae Fajardo Procedure [...] verified by the physician, the nurse, the airport engineer and the electroencephalograph technician in the pre-procedure area in the [...] retroflexion views. Procedure Code(s): --- Professional --- 28257, Colonoscopy, flexible; with removal of tumor(s), polyp(s), or other lesion(s) by snare technique Diagnosis Code(s): --- Professional --- D12.8, Benign neoplasm of rectum D12.4, Benign neoplasm of descending colon D12.3, Benign neoplasm of transverse colon (hepatic flexure or splenic flexure) CPT copyright 2020 [employer]. All rights reserved. The codes documented in this report are preliminary and upon torpedo worker review may be revised to meet current compliance requirements. Nayeli Diop MD 03/21/2025 8:15:58 AM This report has been signed electronically.Nayeli Diop MD Number of Addenda: 0 Note Initiated On: 03/21/2025 7:49 AM Scope Withdrawal Time: 0 hours 12 minutes 46 seconds Scope In: 7:53:57 AM Scope Out: 8:13:39 AM Endoscopy Department at [facility] - [address] [place] [phone] Procedure Note Nayeli Diop MD - 03/21/2025 [facility] GI Patient Name: Tae Fajardo Procedure [...] the physician, the nurse, theanesthetist and the electroencephalograph technician in the pre-procedure area in the [...] retroflexion views. Procedure Code(s): --- Professional --- 42030, Colonoscopy, flexible; with removal of tumor(s), polyp(s), or other lesion(s) by snare technique Diagnosis Code(s): --- Professional --- D12.8, Benign neoplasm of rectum D12.4, Benign neoplasm of descending colon D12.3, Benign neoplasm of transverse colon (hepatic flexure or splenic flexure) CPT copyright 2020 [employer]. All rights reserved. The codes documented in this report are preliminary and upon torpedo worker reviewmay be revised to meet current compliance requirements. Nayeli Diop MD 03/21/2025 8:15:58 AM This report has been signed electronically.Nayeli Diop MD Number of Addenda: 0 Note Initiated On: 03/21/2025 7:49 AM Scope Withdrawal Time: 0 hours 12 minutes 46 seconds Scope In: 7:53:57 AM Scope Out: 8:13:39 AM Endoscopy Department at [facility] - [address] [place] [phone] IMPRESSION: - Six 2 to 9 mm [...] MD LAB PATHOLOGY ORDERABLES Fi nal Result [facility]) [facility] [address] [place] [address], from Last 3 Months Insurance [facility] [employer] Care Teams Ems Helicopter Pilot Relationship Specialty Start Date End Date Azeb Valentine PA [address] [place] [address] PCP - General 01/09/25
--- OUTSIDE RECORDS SUMMARY | 2025-05-09 11:10 | XMS_ITS | Clinical Summary ---
Author Organization [facility] Address [address] [place] [address] Care Team Providers Care Clearing House Clerk Name Role Phone Jorge A De La Cruz BILINGUAL LEGAL ASSISTANT-C Primary Care Provider [phone] Source Comments PLEASE NOTE, if this patient [...] acetaminophen (TYLENOL 8 HOUR) 650 mg CR tabletIndicatio ns:Acute pain of right shoulder Take 1 Tablet by mouth every 8 (eight) hours as needed for pain. 90 Tablet 1 5 Active tamsulosin (FLOMAX) 0.4 mg 24 hr capsuleIndicati ons:Painful urination,Urina ry hesitancy Take 1 Capsule by mouth once daily. 90 Capsule 3 5 Active sulfamethoxazol e-trimethoprim (BACTRIM DS) 800-160 mg per tabletIndicatio ns:bacterial urinary tract infection Take 1 Tablet by mouth 2 (two) times daily Indications: bacterial urinary tract infection. 14 Tablet 5 Active Active Problems No known active problems Immunizations Immunization Administration Dates Next Due ZOSTER VACCINE, RECOMBINANT (SHINGRIX) 5 Family History Medical History Relation Name Comments [...] 01/17/2025 4:49 PM EDT Plan of Treatment Upcoming Encounters Date Type Department Care Team (Late st Contact Info) Description 05/16/2025 9:40 AM EDT Office Visit [facility] [address] [place] [address] Perry Long FNP [address] [place] [address] Health Maintenance Due Date Last Done Comments Anxiety Screening 1965 Imm-DTaP/Tdap/Td (1 - Tdap) 09/27/1986 Imm-Hepatitis B (1 of 3 - 19 + 3-dose series) 09/27/1986 Imm-Pneumococcal 50+ (1 of 2 - PCV) 09/27/1986 CT Colonography 09/27/2012 Flexible Sigmoidoscopy 09/27/2012 Imm-Zoster, Recombinant (2 of 2) 02/06/2025 12/13/19 [id number] (4 - 2024- season) 2025 07/27/2021, 12/19/2020, 11/21/2020 Imm-Influenza (#1) 2025 Tobacco Cessation Counseling (#1) 12/12/2025 FIT/gFOBT 12/27/2025 12/27/2024, 12/27/2024 Hypertension Screening (#1) 01/17/2026 Colonoscopy 03/21/2026 03/21/2025 Colorectal Cancer Screening 03/21/2026 Diabetes Screening 12/13/2027 12/12/2024 Fecal DNA 12/28/2027 12/27/2024, 12/27/2024 Lipid Screening 12/12/2029 12/12/2024 Alcohol and Drug Screen Completed 12/12/2024 Depression Annual Screen Completed 12/12/2024 HIV Screening Completed 12/12/2024 Hepatitis C Screening Completed 12/12/2024 Procedures Procedure Name Priority Date/Time Associated Diagnosis Comments REFERRAL FOR COLONOSCOPY Routine 03/21/2025 3:00 AM EDT Positive colorectal cancer screening using Cologuard test LAB COLOGUARD COLON CANCER SCREEN AMB Routine 12/27/2024 5:55 AM EDT Screening for colon cancer HIV 1/2 AG & AB W/RFLX (4TH GEN) Routine 12/12/2024 2:28 PM EDT Routine screening for STI (sexually transmitted infection) HEPATITIS C AB W/RFLX HCV RNA, QT, RT PCR Routine 12/12/2024 2:28 PM EDT Routine screening for STI (sexually transmitted infection) COMPREHENSIVE METABOLIC PANEL Routine 12/12/2024 2:28 PM EDT Family history of stroke LIPIDS W RFLX TO DIRECT LDL Routine 12/12/2024 2:28 PM EDT Family history of stroke from Last 3 Months or Most Recently Relevant to Health Maintenance Results * REFERRAL FOR COLONOSCOPY (03/21/2025 3:00 AM EDT) 03/21/2025 3:00 AM EDT Azeb Valentine PA-C REFERRAL Final Result * (ABNORMAL) Cologuard?? colon cancer screening Stool Stool Routine (12/27/2024 5:55 AM EDT) COLOGUARD RESULT Positive( A) Negative 01/01/2025 12:39 PM EDT [facility] (CLIA #:[id number]) Comment: The Cologuard (TM) test was performed [...] screened with both Cologuard and colonoscopy. (Len Trammell al, N Engl J Med 2014;370(14):7529-6705.) Cologuard may produce a false negative or false positive result (no colorectal cancer or precancerous polyp present at colonoscopy follow up). A negative Cologuard test result does not guarantee the absence of CRC or advanced adenoma (pre-cancer). The current Cologuard screening interval is every 3 years. ([place] [employer] Society and U.S. Multi-Society Task Force). Cologuard performance data in a 10,000 patient pivotal study using colonoscopy as the reference method can be accessed at the following location: www.PreciouStatus/results. Additional description of the Cologuard test process, warnings and precautions can be found at www.cologAdvactionrd.com. Stool specimen (specimen) 12/27/2024 5:55 AM EDT 12/28/2024 11:16 AM EDT us Azeb Valentine PA-C LAB BODY FLUIDS AND STOOLS A MBULATORY Final Result [facility] (CLIA #:[id number]) [address] [place] [address], * HEPATITIS C AB W/RFLX HCV RNA, QT, RT PCR Routine (12/12/2024 2:28 PM EDT) HEPATITIS C ANTIBODY NON-REACT DARELL NON-REACT DARELL [facility] Comment: HCV antibody was non-reactive. There is no laboratory evidence of HCV infection. In most cases, no further action is required. However, if recent HCV exposure is suspected, a test for HCV RNA (test code 35797) is suggested. For additional information please refer to http://education.[employer].Diagonal View/faq/JIX80h4 (This link is being provided for informational/ educational purposes only.) Blood Blood / Unknown 12/12/2024 2 :28 PM EDT 12/12/2024 2:29 PM EDT Narrative [facility] - 12/14/2024 10:54 AM EDT SPECIMEN COLLECTED AT PROVIDER OFFICE. us Azeb Valentine PA-C LAB - BLOOD DRAW Edited Resu lt - Final Performing Organization Address [facility]/State/ZIP Co de Phone Number [facility] [address] [address], [facility] [address] [address] * HIV 1/2 AG & AB W/RFLX (4TH GEN) Routine (12/12/2024 2:28 PM EDT) HIV AG/AB, 4TH GEN NON-REAC TIVE NON-REAC TIVE [facility] Comment: HIV-1 antigen and HIV-1/HIV-2 antibodies were [...] purpose. For additional information please refer to http://education.BrakeQuotes.com/faq/USJ961 (This link is being provided for informational/ educational purposes only.) The performance of this assay has not been clinically validated in patients less than 2 years old. Blood Blood / Unknown 12/12/2024 2 :28 PM EDT 12/12/2024 2:29 PM EDT Narrative [facility] - 12/14/2024 10:54 AM EDT SPECIMEN COLLECTED AT PROVIDER OFFICE. us Azeb Valentine PA-C LAB - BLOOD DRAW Final Resul t Performing Organization Address [facility]/ZIP Co de Phone Number [facility] [address] [address], [facility] [address] [address] * (ABNORMAL) LIPIDS W RFLX TO DIRECT LDL Routine (12/12/2024 2:28 PM EDT) CHOLESTEROL, TOTAL 181 <200 mg/dL [facility] HDL CHOLESTEROL 49 > OR = 40 mg/dL [facility] TRIGLYCERIDES 118 <150 mg/dL [facility] LDL-CHOLESTEROL 109(H) 99 mg/dL (calc) [facility] Comment: Reference range: <100 Desirable range <100 mg/dL for primary prevention; <70 mg/dL for patients with CHD or diabetic patients with > or = 2 CHD risk factors. LDL-C is now calculated using the Devora calculation, which is a validated novel method providing better accuracy than the Friedewald equation in the estimation of LDL-C. Rj SS et al. OCTAVIO. 2013;310(29): 7692-5297 (http://education.GlampingHub.com/faq/TNN508) CHOL/HDLC RATIO 3.7 <5.0 (calc) [facility] NON-HDL CHOLESTEROL 132(H) <130 mg/dL (calc) [facility] Comment: For patients with diabetes plus 1 major ASCVD risk factor, treating to a non-HDL-C goal of <100 mg/dL (LDL-C of <70 mg/dL) is considered a therapeutic option. Blood Blood / Unknown 12/12/2024 2 :28 PM EDT 12/12/2024 2:29 PM EDT Narrative [facility] - 12/14/2024 10:54 AM EDT SPECIMEN COLLECTED AT PROVIDER OFFICE. us Azeb Valentine PA-C LAB - BLOOD DRAW Final Resul t [facility] [address] [place] [phone], [facility] [address] [place] [phone] * (ABNORMAL) COMPREHENSIVE METABOLIC PANEL Routine (12/12/2024 2:28 PM EDT) GLUCOSE 102(H) 65 - 99 mg/dL [facility] Comment: Fasting reference interval For someone without known diabetes, a glucose value between 100 and 125 mg/dL is consistent with prediabetes and should be confirmed with a follow-up test. UREA NITROGEN (BUN) 12 7 - 25 mg/dL [facility] CREATININE (blood) 0.84 0.70 - 1.30 mg/dL [facility] EGFR 102 > OR = 60 mL/min/1. 73m2 [facility] BUN/CREATININE RATIO SEE NOTE: 6 [facility] Comment: Not Reported: BUN and Creatinine are within reference range. SODIUM 139 135 - 146 mmol/L [facility] POTASSIUM 4.9 3.5 - 5.3 mmol/L [facility] CHLORIDE 106 98 - 110 mmol/L [facility] CARBON DIOXIDE 28 20 - 32 mmol/L [facility] CALCIUM 9.6 8.6 - 10.3 mg/dL [facility] PROTEIN, TOTAL 7.2 6.1 - 8.1 g/dL [facility] ALBUMIN 4.6 3.6 - 5.1 g/dL [facility] GLOBULIN 2.6 1.9 - 3.7 g/dL (calc) [facility] ALBUMIN/GLOBULI N RATIO 1.8 1.0 - 2.5 (calc) [facility] BILIRUBIN, TOTAL 1.7(H) 0.2 - 1.2 mg/dL [facility] ALKALINE PHOSPHATASE 64 35 - 144 U/L [facility] AST 21 10 - 35 U/L [facility] ALT 19 9 - 46 U/L [facility] Blood Blood / Unknown 12/12/2024 2 :28 PM EDT 12/12/2024 2:29 PM EDT Narrative [facility] - 12/14/2024 10:54 AM EDT SPECIMEN COLLECTED AT PROVIDER OFFICE. us Azeb Valentine PA-C LAB - BLOOD DRAW Edited Resu lt - Final [facility] [address] [address], [facility] [address] [address] from Last 3 Months or Most Recently Relevant to Health Maintenance Insurance Positive[employer] Member Subscriber Plan / Payer (Ef fective 2024-Present) Name:Tae Fajardo Relation to Subscriber:Self Name:Tae Fajardo Payer ID:[id number] Group ID:Not on file Type:Indemnity Address: [facility] [address] [place] [address] Care Teams Clearing House Clerk Relationship Specialty Start Date End Date Jorge A De La Cruz FNP-C [facility] [place] [address] PCP - General Internal Medicine 09/20/24
== END 2025-05-09 10:50 | disposition home or self-care (01) ==
LOC: HO.HUSH 09:47
PROVIDERS: Visit Provider Urology
DX: R39.11 Hesitancy of micturition (principal)
CPT/HCPCS: 99214

== ENCOUNTER → 2025-05-09 09:47 | Outpatient (BNVA) | payer OTHER, SELFPAY | PROVIDERS: Visit Provider Urology | DX: R39.11 Hesitancy of micturition (principal) | CPT/HCPCS: 51798; 99212 ==